=== PATIENT | male | born 1975 | race Caucasian/White ===

== ENCOUNTER 2016-08-21 12:44 | Emergency (ER) | payer OTHER | END 2016-08-21 12:59 | disposition home or self-care (01) | LOC: CED 12:44 | DX: M54.41 Lumbago with sciatica, right side (principal); F17.200 Nicotine dependence, unspecified, uncomplicated | CPT/HCPCS: 96372; 99283; J1885 ==

== ENCOUNTER 2016-09-09 09:10 | Emergency (ER) | payer OTHER ==
[2016-09-09] MEDS ORDERED: NO MEDICATIONS (09:18)
== END 2016-09-09 10:24 | disposition home or self-care (01) ==
LOC: SED 09:10
DX: M51.17 Intervertebral disc disorders with radiculopathy, lumbosacral region (principal); F17.210 Nicotine dependence, cigarettes, uncomplicated
CPT/HCPCS: 96372; 99283; J1885; J2360